=== PATIENT | female | born 1955 | race Two or more races ===

== ENCOUNTER 2017-04-21 07:41 | Observation (INO) | payer OTHER ==
[2017-04-21] VITALS (19 sets, daily range): BP systolic 109–147; BP diastolic 43–77; PULSE 71–100; RESP 16–19; Ht 139.7 cm; Wt 88.0 kg
[~2017-04-21] VITALS: Ht 139.7 cm; Wt 88.0 kg
[2017-04-21] MEDS ORDERED: ASPI-664 PO (09:44)
[2017-04-21] MEDS ORDERED: METF500T4 PO (09:44)
[2017-04-21] MEDS ORDERED: LOSA25TA5 PO (09:45)
[2017-04-21] MEDS ORDERED: ATOR10TA65 PO (09:45)
[2017-04-21] MEDS ORDERED: SOD CHLORIDE 0.9% 1,000 ML IV SCH (10:00)
[2017-04-21] MEDS ORDERED: CEFAZOLIN 1 GM/50 ML (PMX) 50 ML IVPB ONE (10:00)
[2017-04-21 10:11] LABS: ADD SCAN DIFF NO
[2017-04-21 10:33] LABS: ALBUMIN 4.4 g/dl (3.3-4.9); ALBUMIN/GLOBULIN RATIO 1.57; BILIRUBIN,INDIRECT 0.1 mg/dl (0-1.1); BILIRUBIN,TOTAL 0.1 mg/dl (0.2-1.3); TOTAL PROTEIN 7.2 g/dl (6.1-8.1)
[2017-04-21 10:34] LABS: BASOPHILS % 0.4 % (0.0-2.0); EOSINOPHILS # 0.2 10^3/ul (0.0-0.5); EOSINOPHILS % 3.2 % (0.0-7.0); HEMATOCRIT 38.6 % (37.0-47.0); HEMOGLOBIN 12.3 g/dl (12.0-16.0); LYMPHOCYTES # 1.3 10^3/ul (0.8-2.9); LYMPHOCYTES % 18.6 % (15.0-51.0); MEAN CORPUSCULAR HEMOGLOBIN 29.6 pg (29.0-33.0); MEAN CORPUSCULAR HGB CONC 31.9 g/dl (32.0-37.0); MEAN PLATELET VOLUME 10.1 fl (7.4-10.4); MONOCYTE # 0.5 10^3/ul (0.3-0.9); MONOCYTES % 7.2 % (0.0-11.0); PLATELET COUNT 226 10^3/UL (140-415); RED BLOOD COUNT 4.15 10^6/ul (4.20-5.40); RED CELL DISTRIBUTION WIDTH 14.4 % (11.5-14.5); WHITE BLOOD COUNT 7.1 10^3/ul (4.8-10.8)
[2017-04-21 10:36] LABS: CALCIUM 9.6 mg/dl (8.4-10.2); CREATININE 0.56 mg/dl (0.44-1.00); INR 0.85; POTASSIUM 4.1 mmol/L (3.5-5.1); PROTIME 11.6 Sec (12.2-14.2); PT RATIO 0.9
[2017-04-21 10:37] LABS: PARTIAL THROMBOPLASTIN TIME 28.6 Sec (25.0-35.0)
[2017-04-21] MEDS ORDERED: ACETAMINOPHEN 1000MG/100ML IV 100 ML IVPB PRN (11:00)
[2017-04-21] MEDS ORDERED: morphine 2 MG INJ IV PRN (11:00)
[2017-04-21] MEDS ORDERED: ONDANSETRON 4 MG INJ IV PRN ×2 (11:00→13:00)
[2017-04-21] MEDS ORDERED: D5W-0.45 NACL + KCL 20 MEQ 1,000 ML IV SCH (11:00)
--- NOTE | 2017-04-21 11:49 | RADRPT ---
PROCEDURE: XR Chest. CLINICAL INDICATION: Preoperative evaluation for left breast needle localization. TECHNIQUE: Single AP portable chest. COMPARISON: None. FINDINGS: The cardiomediastinal silhouette is within normal limits of size.The lungs are clear without pleura l effusion or focal consolidation. No pneumothorax. The osseous structures and soft tissues are unre markable. IMPRESSION: 1. No evidence for active cardiopulmonary disease. RPTAT:AAJJ El Workman Physician Date Time Electronically viewed and signed by El Workman Physician on 04/21/2017 11:49 INEZ/
[2017-04-21] MEDS ORDERED: ISOSULFAN BLUE 1% 5 ML INJ SC ONE (12:41)
[2017-04-21] MEDS ORDERED: MIDAZOLAM 1 MG/ML 2 ML INJ ONE (12:42)
[2017-04-21] MEDS ORDERED: PROPOFOL 20 ML ONE (12:42)
[2017-04-21] MEDS ORDERED: METOCLOPRAMIDE 10 MG INJ ONE (12:42)
[2017-04-21] MEDS ORDERED: FENTAnyl 50 MCG/ML VIAL ONE (12:51)
[2017-04-21] MEDS ORDERED: CEFAZOLIN 1 GM INJ ONE (12:51)
[2017-04-21] MEDS ORDERED: MEPERIDINE 25 MG INJ IV PRN (13:00)
[2017-04-21] MEDS ORDERED: HYDROmorphONE (0.2 MG/ML) 10ML SYG IV PRN ×3 (13:00)
[2017-04-21] MEDS ORDERED: LABETALOL HCL 20MG INJ IV PRN (13:00)
[2017-04-21] MEDS ORDERED: hydrALAzine 20 MG INJ IV PRN (13:00)
[2017-04-21] MEDS ORDERED: METOCLOPRAMIDE 10 MG INJ IV PRN (13:00)
[2017-04-21] MEDS ORDERED: DIPHENHYDRAMINE 50 MG INJ IV PRN (13:00)
[2017-04-21] MEDS ORDERED: EPHEDrine SULFATE 50 MG/5 ML SYG ONE ×2 (13:03→13:50)
[2017-04-21] MEDS: INSULIN ASPART [NOVOLOG] 3 ML PEN SC SCH ×2 (17:55→21:00)
[2017-04-21] MEDS: NS + KCL 20 MEQ 1,000 ML IV SCH (18:19)
[2017-04-21] MEDS ORDERED: ATORVASTATIN 10 MG TAB PO SCH (21:00)
[2017-04-22 00:16] VITALS: BP 124/58; RESP 20
[2017-04-22] MEDS: NS + KCL 20 MEQ 1,000 ML IV SCH ×2 (02:57→12:30)
--- NOTE | 2017-04-22 03:51 | HP ---
DATE OF ADMISSION: 04/21/2017 CHIEF COMPLAINT: The patient is a 61-year-old female with hypertension, dyslipidemia, diabetes, who was noted to have left breast lump. Subsequently underwent core biopsy, which revealed extensive DCIS and high suspicion of microinvasion. Patient was brought in the hospital today and underwent left partial mastectomy and sentinel lymph node biopsy. The patient does have significant postoperative pain and is being admitted for further evaluation and management. The patient denies history of headache with neck pain. No history of fever or chills. No dysuria, no hematuria. No history of leg edema. No history of anginal chest pain prior to surgery. No history of CVA in the past. The rest of the review of systems were unremarkable. PAST SURGICAL HISTORY: Status post times 4. ALLERGIES: NONE. SOCIAL HISTORY: Does not smoke, no alcohol. FAMILY HISTORY: Noncontributory. PHYSICAL EXAMINATION: GENERAL: Patient is conscious, awake, alert. VITAL SIGNS: Blood pressure 136/63, pulse 98, respirations 17, O2 sat 99 percent on 2 L nasal cannula, the patient is afebrile. HEENT: Atraumatic. Oropharynx clear. NECK: Supple. No thyromegaly. CHEST: Clear to auscultation. HEART: Normal, no murmur. ABDOMEN: Soft, nontender. Bowel sounds present. EXTREMITIES: No leg edema. SKIN: Without rash. NEUROLOGIC: The patient is awake, alert, oriented with no gross focal deficit. LAB STUDIES: WBC 7.1, hemoglobin 12.3, platelets 226. Sodium 143, potassium 4.1, BUN 15, creatinine 0.5, glucose 120. IMPRESSION: 1. Left breast cancer, status post left partial mastectomy and axillary dissection. 2. Duodenitis. 3. Hypertension. 4. Dyslipidemia. PLAN: Patient admitted on medical floor. The patient will be given IV fluids, Tylenol, Percocet and IV morphine for pain control. Patient will be continued on Lipitor for dyslipidemia, Cozaar for hypertension, and metformin for diabetes. Will put patient on sliding scale insulin, will use SCD for DVT prophylaxis. Plan of care discussed with the patient's family. whenever cleared by surgery. Dictated By: Hansel Wolf MD /suze/pillo /Document#: [id number]
[2017-04-22 07:00] VITALS: BP 134/63; RESP 18
[2017-04-22] MEDS: INSULIN ASPART [NOVOLOG] 3 ML PEN SC SCH ×2 (07:50→11:40)
[2017-04-22] MEDS ORDERED: metFORMIN 500 MG TAB PO SCH (07:50)
[2017-04-22] MEDS ORDERED: LOSARTAN 25 MG TAB PO SCH (09:00)
[2017-04-22] MEDS ORDERED: HYDR-906 PO (15:35)
--- NOTE | 2017-04-22 15:39 | DS ---
Date/Time of Note Date/Time of Note DATE: 04/22/17 TIME: 15:37 Discharge Summary Admission/Discharge Info Admit Date/Time Apr 21, 2017 at 10:56 Discharge Date/Time Patient Condition: Good Hx of Present Illness The patient is a 61-year-old female with hypertension, dyslipidemia, diabetes, who was noted to have left breast lump. Subsequently underwent core biopsy, which revealed extensive DCIS and high suspicion of microinvasion. Patient was brought in the hospital today and underwent left partial mastectomy and sentinel lymph node biopsy. The patient does have significant postoperative pain and is being admitted for further evaluation and management. The patient denies history of headache with neck pain. No history of fever or chills. No dysuria, no hematuria. No history of leg edema. No history of anginal chest pain prior to surgery. No history of CVA in the past. The rest of the review of systems were unremarkable. Hospital Course 1. Left breast cancer, status post left partial mastectomy and axillary dissection. 2. Duodenitis. 3. Hypertension. 4. Dyslipidemia. Home Meds Reported Medications Atorvastatin Calcium (Atorvastatin Calcium) 10 Mg Tablet, 10 MG PO QHS, #30 TAB 04/21/17 Losartan Potassium* (Losartan Potassium*) 25 Mg Tablet, 25 MG PO DAILY, TAB 04/21/17 Metformin Hcl* (Metformin Hcl*) 500 Mg Tablet, 500 MG PO WITH BREAKFAST, #30 TAB 04/21/17 Aspirin (Low Dose Aspirin) 81 Mg Tablet.dr, 81 MG PO DAILY, #30 TAB 04/21/17 Follow-up Plan Follow-up with Dr. Farris in 1 week Primary Care Provider Not On Staff Doctor Time spent on discharge: > 30 minutes Pending Labs Laboratory Tests Test 04/21/17 18:16 04/21/17 20:59 04/22/17 08:30 04/22/17 12:44 Bedside Glucose 116mg/dL (70-220) 124mg/dL (70-220) 138mg/dL (70-220) 118mg/dL (70-220) SILKE ALCANTAR Apr 22, 2017 15:38
--- NOTE | 2017-04-22 17:34 | RADRPT ---
Vent Rate: 59 bpm RR Interval: 0 msec NM Interval: 186 msec QRS Duration: 80 msec QT Interval: 434 msec QTC Interval: 429 msec P-R-T [place]: 55 - 59 - 70 degrees Sinus bradycardia Low voltage QRS Cannot rule out Anterior infarct , age undetermined Abnormal ECG Electronically Signed By: Dustin Vuong [id number]
--- NOTE | 2017-04-25 15:19 | OPR ---
DATE OF OPERATION: 04/21/2017 SURGEON: Miguel A Farris MD. HASHER OPERATOR: None. ANESTHESIOLOGIST: Dr. Lindsay. PREOPERATIVE DIAGNOSIS: Invasive cancer left breast. POSTOPERATIVE DIAGNOSIS: Invasive cancer left breast. OPERATION PERFORMED: Needle directed left partial mastectomy and axillary dissection. Utilizing sentinel lymph node technique. ANESTHESIA: General. HASHER OPERATOR: None. INDICATIONS FOR PROCEDURE: The patient is a 61-year-old female, who underwent screening mammography and was found to have a suspicious lesion in the upper outer quadrant of her left breast, and subsequent core needle biopsy confirmed invasive cancer. She was counseled as to risks versus benefit of needle-directed partial mastectomy and axillary dissection. Utilizing sentinel lymph node technique. She consented and was scheduled for surgery. OPERATIVE PROCEDURE: On the morning of surgery the patient presented to [facility] where she underwent localization of the lesion performed by attending radiologist Dr. Meir Martino. Subsequently she was brought to the operating theater, placed under general endotracheal tube anesthesia. The left breast and axillary region was prepped and draped in usual sterile fashion. Approximately 4 mL of 1 percent Lymphazurin blue dye were then injected peritumoral. The breast gently massaged for approximately 12 minutes. At this point, a 3- 4 cm incision was made in the left axillary hairline. Subcutaneous tissue was dissected with cautery down through the clavipectoral fascia. The fascia lymphatic was identified and traced to the sentinel node. The sentinel node, an additional level 1 axillary nodes were then harvested using the LigaSure device. Intraoperative analysis of the sentinel node. Performed by attending pathologist Dr. Orourke, did not reveal evidence of metastatic disease. Therefore, the entire specimen was sent for permanent pathologic analysis. The wound was irrigated. Minimal bleeding was controlled with cautery. The skin was reapproximated with #4-0 Vicryl suture in subcuticular fashion. Attention was then directed to performing the partial mastectomy. A curvilinear incision was made in the region of the 3 previously placed localization wire. Subcutaneous tissue was dissected with cautery. The skin edges were then elevated with skin hooks and wide circumferential dissection of the tissue associative wire then took place, taking great care to ensure adequate margins. Specimen was transected oriented and was evaluated grossly for margins by attending pathologist Dr. Orourke, he stated the margins were grossly clear. Subsequently, the specimen was sent for permanent pathologic analysis. The wound was irrigated. Minimal bleeding was controlled with cautery. The skin was then reapproximated with #4-0 Vicryl sutures in subcuticular fashion. Benzoin and Steri-Strips were applied to both incisions. The patient tolerated the procedure well. Total blood loss was approximately 30 mL. There were no complications. The patient was transported in stable condition to recovery room, where a circumferential compression dressing was applied. Dictated By: Miguel A Farris MD /suze/mushtaq /Document#: [id number]
--- NOTE | 2017-04-30 05:54 | PN ---
DATE: 04/22/2017 Postoperative day number one status post partial mastectomy, axillary dissection on the left side. SUBJECTIVE DATA: No complaint. OBJECTIVE DATA: Vital signs are stable: 98.3, 63, 18, 134/63. Saturation 98% on room air. Victoriano-Dupree drain does not exist. The dressing is intact. The Cong wrap on the chest wall had to be readjusted again. The patient does not have any constitutional complaint. ASSESSMENT AND PLAN: The patient to be discharged today. Follow by Dr. Farris office. The patient tomorrow to call and make appointment for followup. Dictated By: Hieu Jane MD /suze/alton /Document#: [id number] ANDRE
== END 2017-04-22 16:25 | disposition home or self-care (01) ==
LOC: SDS 07:41 → MS1 10:56 → SDS 10:56 → INTOOBSV 10:56 → MS1 15:10
PROVIDERS: ADMIT Surgery Surgical Oncology; ATTEND Surgery Surgical Oncology
DX: D05.12 Intraductal carcinoma in situ of left breast (principal); Z17.0 Estrogen receptor positive status [ER+]; I10 Essential (primary) hypertension; E78.5 Hyperlipidemia, unspecified; Z79.82 Long term (current) use of aspirin; M19.90 Unspecified osteoarthritis, unspecified site; E11.9 Type 2 diabetes mellitus without complications
CPT/HCPCS: 19301; 38525; 38900; 71010; 80053; 82962; 85025; 85610; 85730; 88307; 88331; 93005; J0690; J1815; J2250; J2765; J3010; J3480; Z7500; Z7512; Z7610; 99217; G0378; Q9968